=== PATIENT | female | born 1980 | race Caucasian/White ===

== ENCOUNTER 2016-06-06 10:52 | Emergency (ER) | payer MEDICAID | END 2016-06-06 17:58 | disposition home or self-care (01) | LOC: ER 10:52 | DX: K64.8 Other hemorrhoids (principal); K62.5 Hemorrhage of anus and rectum; F17.210 Nicotine dependence, cigarettes, uncomplicated | CPT/HCPCS: 36415; 80053; 82274; 85025; 85610; 85730 ==